=== PATIENT | male | born 1950 | race Caucasian/White ===

== ENCOUNTER 2020-05-29 04:58 | Emergency (ER) | payer MEDICARE ==
[2020-05-29] MEDS ORDERED: Sodium Chloride 0.9% 1000 ML 1,000 ML IV STA (05:12)
[2020-05-29] MEDS ORDERED: BABY ASPIRIN 81 MG CHEW PO ONE (05:12)
[2020-05-29] MEDS ORDERED: Cardizem IV 50 MG/10 ML IV ONE ×2 (05:12→05:23)
[2020-05-29] MEDS ORDERED: DECADRON 10MG INJ. IV ONE (05:18)
[2020-05-29] MEDS ORDERED: Sodium Chloride 0.9% 1000 ML 1,000 ML ONE (05:23)
[2020-05-29] MEDS ORDERED: BABY ASPIRIN 81 MG CHEW ONE (05:23)
[2020-05-29] MEDS ORDERED: DECADRON 10MG INJ. ONE (05:23)
[2020-05-29 05:24] LABS: Absolute Neutrophil Ct (ANC) 9.76 (1.4-6.9); BASOPHIL % 0.2 % (0.0-0.4); Basophil (Absolute #) 0.02 (0-0.4); Eosinophil % 1.5 % (0.00-5.0); Hematocrit 44.6 % (42-50); Hemoglobin 14.2 gm/dl (12.5-18.0); Lymphocyte (Absolute #) 2.46 (1.0-4.6); Lymphocytes % 18.6 % (24.0-44.0); Mean Cell Volume 90.3 fl (78-100); Mean Corpuscular Hemoglobin 28.7 pg (26-32); Mean Corpuscular Hgb Concent. 31.8 g/dl (32-36); Mean Platelet Volume 10.2 fl (7.5-11.0); Monocyte (Absolute #) 0.78 (0.0-1.3); Monocytes % 5.9 % (0.0-12.0); Neutrophil % 73.8 % (36.0-66.0); Platelet Count 300 K/mm3 (150-450); Red Blood Count 4.94 M/mm3 (4.1-5.6); Red Cell Distribution Width 15.8 % (11.5-14.0); White Blood Count 13.2 K/mm3 (4.0-10.5)
[2020-05-29] MEDS ORDERED: INDERAL 1 MG/ML IV ONE (05:30)
[2020-05-29] MEDS ORDERED: INDERAL 1 MG/ML ONE (05:33)
--- NOTE | 2020-05-29 05:38 | ERPHSYRPT ---
- History of Present Illness Time Seen by Provider: 05/29/20 05:00 Source: patient Exam Limitations: no limitations Patient Subjective Stated Complaint: "I have these chest pains." Triage Nursing Assessment: . Physician History: Patient is here for left-sided chest pain. He appears to be in new onset A. fib with RVR. Could this be hyperthyroidism? Patient has had multiple thyroid surgeries is on levothyroxine. Patient is unsure of his history. States that he has been having these chest pains on and off for 2 to 3 months. Patient has no falls no trauma. Location: left chest Quality: sharp Radiation: into back Severity: moderate Duration: acute on chronic, up to 3 months of chronic chest pain Timing: suddenly Modifying factors/associated signs and symptoms: none tried Timing/Duration: today Severity: moderate Associated Symptoms: nausea Allergies/Adverse Reactions: No Known Drug Allergies Allergy (Unverified 05/29/20 05:02) Home Medications: ALPRAZolam 1 MG [Xanax 1 mg] 1 mg PO TID PRN PRN 04/26/16 [History] Aspirin [Aspirin EC] 81 mg PO DAILY 04/26/16 [History] Levothyroxine Sodium 50 Mcg [Synthroid 50 Mcg] 100 mcg PO DAILY 04/26/16 [History] Magnesium Oxide 400 mg [Mag-Ox 400] 400 mg PO DAILY 04/26/16 [History] Divalproex Sodium [Divalproex Sodium ER] 1 tab PO DAILY 05/29/20 [History] Duloxetine HCl 1 cap PO DAILY 05/29/20 [History] Famotidine [Pepcid] 1 tab PO DAILY 05/29/20 [History] Fexofenadine HCl 1 tab PO DAILY 05/29/20 [History] Finasteride 5 mg [Proscar 5 MG] 1 tab PO DAILY 05/29/20 [History] Gabapentin 1 cap PO TID 05/29/20 [History] Hydromorphone HCl 1 tab PO QID 05/29/20 [History] Oxybutynin Chloride [Oxybutynin Chloride ER] 1 tab PO DAILY 05/29/20 [History] PANTOPRAZOLE 40 mg Tablet [Protonix 40MG Tablet] 1 tab PO DAILY 05/29/20 [History] Potassium Chloride 1 tab PO BID 05/29/20 [History] Tamsulosin HCl 0.4 mg [Flomax 0.4 MG] 2 cap PO DAILY 05/29/20 [History] Trazodone HCl 50 mg [Desyrel 50 mg] 1 tab PO HS 05/29/20 [History] Hx Influenza Vaccination/Date Given: Yes Hx Pneumococcal Vaccination/Date Given: Yes Travel Risk - International Travel Have you traveled outside of the country in past 3 weeks: No - Coronavirus Screening Are you exhibiting any of the following symptoms?: No Close contact with a COVID-19 positive Pt in past 14-21 Days: No - Vaccine Status Have you recieved a Covid-19 vaccination: No - Review of Systems Constitutional: No Fever, No Chills Eyes: No Symptoms Ears, Nose, & Throat: No Symptoms Respiratory: No Cough, No Dyspnea Cardiac: Chest Pain, Other (tachycardia ), No Edema, No Syncope Abdominal/Gastrointestinal: No Abdominal Pain, No Nausea, No Vomiting, No Diarrhea Genitourinary Symptoms: No Dysuria Musculoskeletal: No Back Pain, No Neck Pain Skin: No Rash Neurological: No Dizziness, No Focal Weakness, No Sensory Changes Psychological: No Symptoms Endocrine: No Symptoms All Other Systems: Reviewed and Negative - Past Medical History Pertinent Past Medical History: Yes Neurological History: No Pertinent History ENT History: No Pertinent History Cardiac History: No Pertinent History Respiratory History: COPD, Emphysema Endocrine Medical History: Hypothyroidism Musculoskeletal History: Arthritis GI Medical History: Hernia History: No Pertinent History Psycho-Social History: No Pertinent History Male Reproductive Disorders: Prostate Problems - Past Surgical History Past Surgical History: Yes Neuro Surgical History: No Pertinent History Cardiac: No Pertinent History Respiratory: No Pertinent History Gastrointestinal: Appendectomy, Colon Resection Genitourinary: No Pertinent History Musculoskeletal: No Pertinent History Male Surgical History: No Pertinent History - Social History Smoking Status: Current every day smoker Exposure to second hand smoke: No Drug Use: none Patient Lives Alone: No - Nursing Vital Signs Nursing Vital Signs: Initial Vital Signs Pulse Rate 142 H 05/29/20 04:58 Respiratory Rate 16 05/29/20 04:58 Blood Pressure 127/81 05/29/20 04:58 O2 Sat by Pulse Oximetry 98 05/29/20 04:58 Pain Scale Pain Intensity 4 - Physical Exam General Appearance: no apparent distress, alert Eye Exam: PERRL/EOMI, eyes nml inspection Ears, Nose, Throat Exam: normal ENT inspection, TMs normal, pharynx normal, moist mucous membranes Neck Exam: normal inspection, non-tender, supple, full range of motion Respiratory Exam: normal breath sounds, lungs clear, No respiratory distress Cardiovascular Exam: normal heart sounds, normal peripheral pulses, tachycardia, other (A. fib with RVR) Gastrointestinal/Abdomen Exam: soft, normal bowel sounds, No tenderness, No mass Back Exam: normal inspection, normal range of motion, No CVA tenderness, No vertebral tenderness Extremity Exam: normal inspection, normal range of motion, pelvis stable Neurologic Exam: alert, oriented x 3, cooperative, normal mood/affect, nml cerebellar function, nml station & gait, sensation nml, No motor deficits Skin Exam: normal color, warm, dry, No rash Lymphatic Exam: No adenopathy SpO2: 98 - Course Nursing assessment & vital signs reviewed: Yes EKG Interpreted by Me: Sinus Rhythm Rhythm Strip: Normal Sinus Rhythm Ordered Tests: Active Orders 24 hr Category Date Time Status EKG-ER Only STAT Care 05/29/20 05:12 Active IV Insertion STAT Care 05/29/20 05:12 Active CHEST 1 VIEW (PORTABLE) Stat Exams 05/29/20 05:12 Taken CBC W DIFF Stat Lab 05/29/20 05:21 Completed CMP Stat Lab 05/29/20 05:21 Completed ETHYL ALCOHOL Stat Lab 05/29/20 05:21 Completed FREE T3 [FREE TRIODOTHYRONINE] Stat Lab 05/29/20 05:25 Completed LIPASE Stat Lab 05/29/20 05:21 Completed MAGNESIUM Stat Lab 05/29/20 05:21 Completed NT PRO BNP Stat Lab 05/29/20 05:21 Completed TROPONIN Q3H Lab 05/29/20 05:21 Completed TROPONIN Q3H Lab 05/29/20 08:15 Ordered TROPONIN Q3H Lab 05/29/20 11:15 Ordered TROPONIN Q3H Lab 05/29/20 14:15 Ordered TROPONIN Q3H Lab 05/29/20 17:15 Ordered TSH [TSH, 3RD Generation] Stat Lab 05/29/20 05:21 Completed Medication Summary Discontinued Medications Generic Name Dose Route Start Last Admin Trade Name Freq PRN Reason Stop Dose Admin Aspirin 324 mg 05/29/20 05:12 05/29/20 05:30 Baby Aspirin 81 Mg Chew PO 05/29/20 05:13 324 mg STAT ONE Administration Aspirin Confirm 05/29/20 05:23 Baby Aspirin 81 Mg Chew Administered 05/29/20 05:24 Dose 324 mg .ROUTE .STK-MED ONE Dexamethasone Sodium Phosphate 10 mg 05/29/20 05:18 05/29/20 05:32 Decadron 10mg Inj. IV 05/29/20 05:19 10 mg STAT ONE Administration Dexamethasone Sodium Phosphate Confirm 05/29/20 05:23 Decadron 10mg Inj. Administered 05/29/20 05:24 Dose 10 mg .ROUTE .STK-MED ONE Diltiazem HCl 15 mg 05/29/20 05:12 05/29/20 05:32 Cardizem Iv 50 Mg/10 Ml IV 05/29/20 05:13 Not Given STAT ONE Diltiazem HCl Confirm 05/29/20 05:23 Cardizem Iv 50 Mg/10 Ml Administered 05/29/20 05:24 Dose 50 mg IV .STK-MED ONE Sodium Chloride 1,000 mls @ 999 mls/hr 05/29/20 05:12 05/29/20 05:28 Sodium Chloride 0.9% 1000 Ml IV 05/29/20 06:12 999 mls/hr .Q1H1M STA Administration Sodium Chloride Confirm 05/29/20 05:23 Sodium Chloride 0.9% 1000 Ml Administered 05/29/20 05:24 Dose 1,000 mls @ ud .ROUTE .STK-MED ONE Propranolol HCl 2 mg 05/29/20 05:30 05/29/20 05:36 Inderal 1 Mg/Ml Inj IV 05/29/20 05:31 2 mg ONCE ONE Administration Propranolol HCl Confirm 05/29/20 05:33 Inderal 1 Mg/Ml Inj Administered 05/29/20 05:34 Dose 2 mg .ROUTE .STK-MED ONE Lab/Rad Data: Laboratory Result Diagrams 05/29/20 05:21 05/29/20 05:21 Laboratory Results 05/29/20 05/29/20 05/29/20 Range/Units 05:25 05:25 05:21 WBC (4.0-10.5) K/mm3 RBC (4.1-5.6) M/mm3 Hgb (12.5-18.0) gm/dl Hct (42-50) % MCV (78-100) fl MCH (26-32) pg MCHC (32-36) g/dl RDW (11.5-14.0) % Plt Count (150-450) K/mm3 MPV (7.5-11.0) fl Gran % (36.0-66.0) % Eos # (Auto) (0-0.5) Absolute Lymphs (auto) (1.0-4.6) Absolute Monos (auto) (0.0-1.3) Lymphocytes % (24.0-44.0) % Monocytes % (0.0-12.0) % Eosinophils % (0.00-5.0) % Basophils % (0.0-0.4) % Absolute Granulocytes (1.4-6.9) Basophils # (0-0.4) Sodium (137-145) mmol/L Potassium (3.5-5.1) mmol/L Chloride (98-107) mmol/L Carbon Dioxide (22-30) mmol/L Anion Gap (5-15) MEQ/L BUN (9-20) mg/dL Creatinine (0.66-1.25) mg/dL Estimated GFR ML/MIN Glucose (74-106) mg/dL Calcium (8.4-10.2) mg/dL Magnesium (1.6-2.3) mg/dL Total Bilirubin (0.2-1.3) mg/dL AST (17-59) U/L ALT (0-50) U/L Alkaline Phosphatase (38-126) U/L Troponin I < 0.012 (0.000-0.034) ng/mL NT-Pro-B Natriuret Pep (0-900) pg/mL Serum Total Protein (6.3-8.2) g/dL Albumin (3.5-5.0) g/dL Lipase (23-300) U/L Free T4 1.25 (0.76-1.46) ng/dL Free T3 pg/mL 4.48 (2.77-5.27) pg/mL TSH 3rd Generation (0.47-4.68) mIU/L Ethyl Alcohol (0-10) mg/dL 05/29/20 05/29/20 05/29/20 Range/Units 05:21 05:21 05:21 WBC 13.2 H (4.0-10.5) K/mm3 RBC 4.94 (4.1-5.6) M/mm3 Hgb 14.2 (12.5-18.0) gm/dl Hct 44.6 (42-50) % MCV 90.3 (78-100) fl MCH 28.7 (26-32) pg MCHC 31.8 L (32-36) g/dl RDW 15.8 H (11.5-14.0) % Plt Count 300 (150-450) K/mm3 MPV 10.2 (7.5-11.0) fl Gran % 73.8 H (36.0-66.0) % Eos # (Auto) 0.20 (0-0.5) Absolute Lymphs (auto) 2.46 (1.0-4.6) Absolute Monos (auto) 0.78 (0.0-1.3) Lymphocytes % 18.6 L (24.0-44.0) % Monocytes % 5.9 (0.0-12.0) % Eosinophils % 1.5 (0.00-5.0) % Basophils % 0.2 (0.0-0.4) % Absolute Granulocytes 9.76 H (1.4-6.9) Basophils # 0.02 (0-0.4) Sodium 138 (137-145) mmol/L Potassium 4.1 (3.5-5.1) mmol/L Chloride 96 L (98-107) mmol/L Carbon Dioxide 34 H (22-30) mmol/L Anion Gap 11.4 (5-15) MEQ/L BUN 11 (9-20) mg/dL Creatinine 0.95 (0.66-1.25) mg/dL Estimated GFR > 60.0 ML/MIN Glucose 101 (74-106) mg/dL Calcium 10.3 H (8.4-10.2) mg/dL Magnesium 2.1 (1.6-2.3) mg/dL Total Bilirubin 1.20 (0.2-1.3) mg/dL AST 15 L (17-59) U/L ALT 10 (0-50) U/L Alkaline Phosphatase 50 (38-126) U/L Troponin I (0.000-0.034) ng/mL NT-Pro-B Natriuret Pep 1200 H (0-900) pg/mL Serum Total Protein 6.7 (6.3-8.2) g/dL Albumin 4.0 (3.5-5.0) g/dL Lipase 22 L (23-300) U/L Free T4 (0.76-1.46) ng/dL Free T3 pg/mL (2.77-5.27) pg/mL TSH 3rd Generation 1.580 (0.47-4.68) mIU/L Ethyl Alcohol < 10 (0-10) mg/dL - Progress Progress: improved Progress Note: 05/29/20 05:39 Patient appears to be in new onset A. fib with RVR. No previous EKG to compare to. Patient also may be in a thyroid storm, withdrawal, STEMI, other infection. We will obtain basic labs, EKG, troponin, TSH, free T4, free T3. We will give fluids, aspirin, propranolol, steroids. This is in case he is in a thyroid storm. Patient most likely will need transfer for cardiology. 05/29/20 06:11 Patient actually looks very much improved with fluids and steroids and propanolol. His new heart rate is now in the 90s, rate controlled still atrial fibrillation on repeat EKG. First troponin is negative. BNP is elevated. This could be secondary to atrial fibrillation. TSH still pending at this point time. ED critical care statement As staff physician, I have provided critical care. Time: 45 min Criteria for critical illness: afib with RVR, Treatment and management provided include: Coordination of management with ETC care team, consultants, and inpatient care team. [id number] assessment of condition and response to therapy. Review and interpretation of emergent diagnostic testing. Medical chart review and completion. Direction and immediate supervision of the following therapy: Critical care was time spent personally by me on the following activities: blood draw for specimens, development of treatment plan with patient or surrogate, discussions with consultants, di scussions with primary provider, interpretation of cardiac output measurements, evaluation of patien t';s response to treatment, examination of patient, obtaining history from patient or surrogate, ordering and performing treatments and interventions, ordering and review of laboratory studies, ordering and review of radiographic studies, pulse oximetry, re-evaluation of patient's condition and review of old charts. This time was independent of all procedures performed. Tony Hines 05/29/20 06:22 Accepting physician at [facility], Dr. Dangelo Ornelas. Patient remained stable throughout rest of stay. Counseled pt/family regarding: lab results, diagnosis, need for follow-up, rad results - Departure Departure Disposition: In-patient Admission Clinical Impression: Elevated brain natriuretic peptide (BNP) level, Atrial fibrillation with RVR Condition: Stable Critical Care Time: Yes Critical Care Time(excluding separately billable procedures): Critical 30-74 mins Referrals: PABLITO ZAYAS [Primary Care Provider] -
[2020-05-29 05:48] LABS: ALKALINE PHOSPHATASE 50 U/L (38-126); ANION GAP 11.4 MEQ/L (5-15); BLOOD UREA NITROGEN 11 mg/dL (9-20); CHLORIDE 96 mmol/L (98-107); Calcium 10.3 mg/dL (8.4-10.2); Carbon Dioxide 34 mmol/L (22-30); Creatinine 1 0.95 mg/dL (0.66-1.25); EST GLOMERULAR FILTRATION RATE > 60.0 ML/MIN; ETHYL ALCOHOL < 10 mg/dL (0-10); Glucose 101 mg/dL (74-106); LIPASE 22 U/L (23-300); MAGNESIUM 2.1 mg/dL (1.6-2.3); NT PRO BNP 1200 pg/mL (0-900); Potassium 4.1 mmol/L (3.5-5.1); SGOT/AST 15 U/L (17-59); SGPT/ALT 10 U/L (0-50); SODIUM 138 mmol/L (137-145); Total Protein 6.7 g/dL (6.3-8.2)
[2020-05-29 06:06] VITALS: BP 110/77
[2020-05-29 06:13] VITALS: O2SAT 98
[2020-05-29 06:49] VITALS: PULSE 102
--- NOTE | 2020-05-29 07:42 | XRAY ---
Indication: Pneumonia. Comparison: May 15, 2017. Portable chest remains clear. Heart not enlarged. 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 Bony thorax intact again with minimal degenerative changes. Impression: Continued nonacute chest with chronic features.
== END 2020-05-29 06:47 | disposition short-term general hospital (02) ==
LOC: ED 04:58
DX: R79.89 Other specified abnormal findings of blood chemistry (principal); I48.91 Unspecified atrial fibrillation; Z79.899 Other long term (current) drug therapy; J44.9 Chronic obstructive pulmonary disease, unspecified; E03.9 Hypothyroidism, unspecified; Z72.0 Tobacco use
CPT/HCPCS: 36000; 36415; 71045; 80053; 83690; 83735; 83880; 84439; 84443; 84481; 84484; 85025; 93005; 96360; 96374; 96375; 99285; 99291; G0480; 80307; J1100; J1800; A9270-GY